=== PATIENT | male | born 2000 | race Caucasian/White ===

== ENCOUNTER 2022-06-14 14:03 | Emergency (ER) | payer MEDICAID ==
[~2022-06-14] VITALS: Ht 177.8 cm; Wt 99.8 kg
[2022-06-14 14:18] VITALS: BP 140/72
--- NOTE | 2022-06-14 14:20 | NUR ---
DR LLAMAS AT BEDSIDE W/ PT FOR EVAL
[2022-06-14] MEDS ORDERED: DEXAMETHASONE SOLN 5 MG/5 ML UDC PO ONE (14:30)
[2022-06-14] MEDS ORDERED: AMOX500T2 PO (14:31)
[2022-06-14] MEDS ORDERED: DEXAMETHASONE 4 MG TABLET ONE (14:31)
[2022-06-14] MEDS ORDERED: DEXAMETHASONE SOLN 5 MG/5 ML UDC ONE (14:34)
--- NOTE | 2022-06-14 14:38 | NUR ---
DECADRON GIVEN PO, MUSTAPHA WELL
--- NOTE | 2022-06-14 14:41 | NUR ---
Patient discharged to home in stable condition. Written and verbal after care instructions given. Patient verbalizes understanding of instruction.
== END 2022-06-14 14:42 | disposition home or self-care (01) ==
LOC: ER 14:12
DX: J02.9 Acute pharyngitis, unspecified (principal); Z60.2 Problems related to living alone; Z79.899 Other long term (current) drug therapy
CPT/HCPCS: 99283; J8540